=== PATIENT | female | born 1980 | race Caucasian/White ===

== ENCOUNTER 2016-11-01 22:04 | Emergency (ER) | payer MEDICAID ==
[~2016-11-01] VITALS: Ht 160 cm; Wt 102.7 kg
[2016-11-01 22:13] VITALS: BP 145/91
[2016-11-01] MEDS ORDERED: ACETAMINOPHEN EXTRA STRENGTH 500 MG TAB ONE (22:27)
--- NOTE | 2016-11-02 01:17 | NUR ---
TO ER OF1
--- NOTE | 2016-11-02 01:22 | NUR ---
Patient being evaluated by physician.
--- NOTE | 2016-11-02 01:35 | NUR ---
36Y/M PATIENT PRESENTS TO ED WITH C/O LOWER BACK PAIN . PT STATES CHRONIC BACK PAIN AND OF YESTERDAY ABD PAIN. PT USING IBUPROFEN FOR PAIN MEDS 800MG. MED HX; CHRONIC MED, ARTHRITIS . DENIES N/V/D; SKIN IS PINK/WARM/DRY; AAOX4 WITH EVEN AND STEADY GAIT; LUNGS CLEAR BL; HR EVEN AND REGULAR; PT DENIES ANY FEVER, CP, SOB, OR COUGH AT THIS TIME; PATIENT STATES PAIN OF 9/10 AT THIS TIME; VSS; PATIENT POSITIONED FOR COMFORT. ER MD MADE AWARE OF PT STATUS.
[2016-11-02 01:36] LABS: APPEARANCE,URINE CLOUDY (CLEAR); BILIRUBIN,URINE NEGATIVE (NEGATIVE); BLOOD, URINE 1+ (NEGATIVE); COLOR,URINE YELLOW (YELLOW); LEUKOCYTE ESTERASE ,URINE NEGATIVE (NEGATIVE); NITRITE, URINE NEGATIVE (NEGATIVE); PH,URINE 8.5 (5.0-9.0); PROTEIN,URINE NEGATIVE (NEGATIVE); UGLUCOSE NEGATIVE (NEGATIVE); UROBILINOGEN,URINE 0.2 EU/dL (0.2 - 1)
--- NOTE | 2016-11-02 01:39 | NUR ---
MOVED TO ER BED 3
[2016-11-02] MEDS ORDERED: KETOROLAC 30 MG/ML VIAL IM ONE (01:40)
[2016-11-02] MEDS ORDERED: HYDROcodone/APAP 5/325 MG 1 TAB TAB PO ONE (01:40)
[2016-11-02 01:43] LABS: BASOPHILS # (AUTO) 0.4 K/uL (0.00-0.22); BASOPHILS % (AUTO) 3.6 % (0.0-2.0); EOSINOPHILS # (AUTO) 0.1 K/uL (0-0.4); HEMATOCRIT 42.9 % (36-48); HEMOGLOBIN 13.7 g/dL (12.0-16.0); LYMPHOCYTES # (AUTO) 2.1 K/uL (2.5-16.5); LYMPHOCYTES % (AUTO) 19.3 % (20.5-51.1); MEAN CORPUSCULAR HEMOGLOBIN 29 pg (27-31); MEAN CORPUSCULAR HGB CONC 32 g/dL (33-37); MEAN CORPUSCULAR VOLUME 90 fL (80-94); MONOCYTES # (AUTO) 0.5 K/uL (0.8-1.0); MONOCYTES % (AUTO) 4.5 % (1.7-9.3); NEUTROPHILS % (AUTO) 71.6 % (42.2-75.2); PLATELET COUNT (AUTO) 330 K/uL (140-450); RED BLOOD CELL COUNT(AUTO) 4.78 MIL/uL (4.20-5.40); RED CELL DISTRIBUTION WIDTH 12.4 % (11.6-13.7); WHITE BLOOD COUNT (AUTO) 11.1 K/uL (4.8-10.8)
[2016-11-02 01:49] LABS: BACTERIA,URINE 4+ /HPF (None Seen); MUCUS,URINE 4+ /LPF (None Seen); WBC,URINE 60-80 /HPF (0-5)
[2016-11-02 02:03] LABS: ALBUMIN 3.7 g/dL (3.4-5.0); ANION GAP 15.6 (8-16); CALCIUM 8.3 mg/dL (8.5-10.1); CARBON DIOXIDE 24.1 mmol/L (21-32); CREATININE 0.7 mg/dL (0.6-1.3); POTASSIUM 3.7 mmol/L (3.5-5.1); TOTAL BILIRUBIN 1.1 mg/dL (0.0-1.0); TOTAL PROTEIN, SERUM 8.3 g/dL (6.4-8.2)
--- NOTE | 2016-11-02 02:35 | NUR ---
AMELIA GUILLAUME IN [place], CALLED HOUSE SUP TO BRING TO ER SPOKE TO GHAZAL SHELTON
[2016-11-02] MEDS ORDERED: cefTRIAXone 1,000 MG VIAL ONE (03:03)
--- NOTE | 2016-11-02 04:39 | NUR ---
IV removed, catheter intact and site benign. Applied folded 4x4 gauze and tape to stop bleeding.
[2016-11-02 04:41] VITALS: BP 139/82
--- NOTE | 2016-11-02 04:41 | NUR ---
Patient discharged with v/s stable. Written and verbal after care instructions given and explained. Patient alert, oriented and verbalized understanding of instructions. Ambulatory with steady gait. All questions addressed prior to discharge. ID band removed. Patient advised to follow up with PMD. Rx of NORCO 5/325MG, MOTRIN 600MG, CIPRO 500MG given. Patient educated on indication of medication including possible reaction and side effects. Opportunity to ask questions provided and answered.
== END 2016-11-02 04:41 | disposition home or self-care (01) ==
LOC: MED 22:04
DX: N12 Tubulo-interstitial nephritis, not specified as acute or chronic (principal)
CPT/HCPCS: 36415; 76700; 80053; 81001; 81025; 83690; 85025; 87086; 87186; 96365; 96372; 99285; J0696; J1885; J7060; Q0092

== ENCOUNTER 2019-05-04 08:32 | Emergency (ER) | payer SELFPAY ==
[~2019-05-04] VITALS: Ht 160 cm; Wt 100.2 kg
--- NOTE | 2019-05-04 08:40 | NUR ---
Connor hardy in [facility] - 05/04/19 at 0843 by ELTON PATIENT AMBULATED TO BED 5.
[2019-05-04 08:43] VITALS: BP 125/64
--- NOTE | 2019-05-04 08:57 | NUR ---
C/O RUQ ABD PAIN RADIATING TO R UPPER BACK /10 AND SHARP X1 WEEK ACCOMPANIED BY VOMITING. PT REPORTS SHE HAD A FEVER FOR ONE DAY LAST SATURDAY. AFEBRILE NOW. TEMP 97.8 ORALLY. PT DENIES TAKING ANY MEDICATION FOR PAIN AT HOME. DENIES DYSURIA, FREQUENCY. BOWEL SOUNDS ACTIVE IN ALL 4 QUADRANTS. ABDOMEN TENDER TO TOUCH ON R SIDE, ABDOMEN ROUND AND SOFT. VSS. AA0X4. BED IS DOWN, LOCKED, BED RAIL X 1, ERMD TO SEE PT. HX: NONE RX: NONE
--- NOTE | 2019-05-04 09:40 | NUR ---
DR PRATER AT BEDSIDE
[2019-05-04] MEDS ORDERED: NACL 0.9% 500 ML IV ONE (09:48)
[2019-05-04] MEDS ORDERED: KETOROLAC 30 MG/ML VIAL IVP ONE (09:50)
[2019-05-04] MEDS ORDERED: ONDANSETRON 4 MG/2 ML VIAL IVP ONE (09:50)
--- NOTE | 2019-05-04 09:58 | NUR ---
LAB AT BEDSIDE
[2019-05-04 10:04] LABS: BASOPHILS # (AUTO) 0.1 K/uL (0.00-0.22); BASOPHILS % (AUTO) 1.3 % (0.0-2.0); EOSINOPHILS # (AUTO) 0.1 K/uL (0-0.4); EOSINOPHILS % (AUTO) 0.6 % (0.0-4.0); HEMATOCRIT 40.9 % (36-48); HEMOGLOBIN 13.3 g/dL (12.0-16.0); LYMPHOCYTES # (AUTO) 1.4 K/uL (2.5-16.5); LYMPHOCYTES % (AUTO) 16.2 % (20.5-51.1); MEAN CORPUSCULAR HEMOGLOBIN 29 pg (27-31); MEAN CORPUSCULAR HGB CONC 32 g/dL (33-37); MEAN CORPUSCULAR VOLUME 89.8 fL (80-94); MONOCYTES # (AUTO) 0.3 K/uL (0.8-1.0); MONOCYTES % (AUTO) 3.9 % (1.7-9.3); NEUTROPHILS # (AUTO) 6.5 K/uL (1.8-7.7); PLATELET COUNT (AUTO) 341 K/uL (140-450); RED BLOOD CELL COUNT(AUTO) 4.56 MIL/uL (4.20-5.40); RED CELL DISTRIBUTION WIDTH 13.6 % (11.6-13.7); WHITE BLOOD COUNT (AUTO) 8.4 K/uL (4.8-10.8)
--- NOTE | 2019-05-04 10:08 | NUR ---
ZOFRAN AND TORADOL ADMINISTERED IVP
[2019-05-04 10:09] LABS: ANION GAP 11.3 (8-16); CARBON DIOXIDE 26.8 mmol/L (21-32); CREATININE 0.7 mg/dL (0.6-1.3); POTASSIUM 4.1 mmol/L (3.5-5.1)
--- NOTE | 2019-05-04 10:11 | NUR ---
VSS AT THIS TIME
[2019-05-04 10:15] LABS: ALBUMIN 3.4 g/dL (3.4-5.0); TOTAL BILIRUBIN 1.7 mg/dL (0.0-1.0)
--- NOTE | 2019-05-04 10:24 | NUR ---
US AT BEDSIDE
--- NOTE | 2019-05-04 11:05 | NUR ---
VSS AT THIS TIME
[2019-05-04 12:14] VITALS: BP 135/66
--- NOTE | 2019-05-04 12:14 | NUR ---
Patient discharged with v/s stable. Written and verbal after care instructions given and explained. Patient alert, oriented and verbalized understanding of instructions. Ambulatory with steady gait. All questions addressed prior to discharge. ID band removed. Patient advised to follow up with PMD. Rx of ZOFRAN AND TRAMADOL given. Patient educated on indication of medication including possible reaction and side effects. Opportunity to ask questions provided and answered. PT GIVEN COPY OF DISCHARGE INSTRUTIONS IN CYPRIOT AND NAURUAN
== END 2019-05-04 12:14 | disposition home or self-care (01) ==
LOC: MED 08:32
DX: K75.9 Inflammatory liver disease, unspecified (principal); R03.0 Elevated blood-pressure reading, without diagnosis of hypertension; M54.9 Dorsalgia, unspecified
CPT/HCPCS: 36415; 76705; 80053; 81002; 81025; 83690; 85025; 96361; 96374; 96375; 99284; J1885; J2405; J7030; Q0092